=== PATIENT | male | born 1940 | race Hispanic/Latino ===

== ENCOUNTER 2019-08-21 23:23 | Emergency (ER) | payer MEDICARE, OTHER ==
[~2019-08-21 23:23] MED LIST: ACET-2743 PO; AMOX500C2 PO; ASPI-1012 PO; ATOR10 PO; CALC1TAB3 PO; CILO100T PO; FISH1CAP50 PO; INSLAN SQ; INSU100C6 SQ; LISI40TA4 PO; METF-444 PO; METO100T7 PO; TAMS-1 PO; TRAZ-185 PO
[2019-08-21 23:59] LABS: BASOPHILS % (AUTO) 0.4 % (0.0-5.0); EOSINOPHILS % (AUTO) 10.2 % (0.0-8.0); HEMATOCRIT 32.2 % (42-54); LYMPHOCYTES % (AUTO) 14.2 % (21.0-51.0); MEAN CORPUSCULAR HEMOGLOBIN 34.6 pg (27.0-33.0); MEAN CORPUSCULAR HGB CONC 34.5 g/dL (32.0-36.0); MEAN CORPUSCULAR VOLUME 100.4 fL (79-99); MONOCYTES % (AUTO) 6.4 % (3.0-13.0); NEUTROPHILS % (AUTO) 68.8 % (40.0-77.0); PLATELET COUNT (AUTO) 196 K/uL (130-400); RED BLOOD CELL COUNT(AUTO) 3.21 MIL/uL (4.50-6.20); RED CELL DISTRIBUTION WIDTH 14.1 % (11.0-15.5); WHITE BLOOD COUNT (AUTO) 7.1 K/uL (4.8-10.8)
[2019-08-22 00:09] LABS: CREATININE 1.4 mg/dL (0.5-1.5); POTASSIUM 4.1 mmol/L (3.5-5.1)
[2019-08-22 00:14] LABS: BILIRUBIN,DIRECT 0.1 mg/dL (0.0-0.3); BILIRUBIN,TOTAL 0.6 mg/dL (0.2-1.0)
[2019-08-22 00:15] LABS: ALBUMIN 3.9 g/dL (3.5-5.0); TOTAL PROTEIN, SERUM 7.5 g/dL (6.0-8.3)
[2019-08-22 00:19] LABS: B-TYPE NATRIURETIC PEPTIDE 140 pg/mL (0-100)
== END 2019-08-22 03:11 | disposition home or self-care (01) ==
LOC: EDH 23:23
DX: R53.1 Weakness (principal); R00.1 Bradycardia, unspecified; I10 Essential (primary) hypertension; E78.00 Pure hypercholesterolemia, unspecified; E11.9 Type 2 diabetes mellitus without complications; Z95.1 Presence of aortocoronary bypass graft; Z87.891 Personal history of nicotine dependence
CPT/HCPCS: 36415; 71045; 80048; 80076; 82550; 83880; 84484; 85025; 93005

== ENCOUNTER 2021-01-15 21:19 | Inpatient (IN) | payer MEDICARE, OTHER ==
[~2021-01-15] VITALS: Ht 170.2 cm; Wt 103.1 kg
[~2021-01-15 21:19] MED LIST changes: -LISI40TA4 PO; +LISI40TA9 PO
[2021-01-16] MEDS ORDERED: KETOROLAC 15MG/ML VIAL (15MG/ML) ONE (00:08)
[2021-01-16] MEDS ORDERED: ORPHENADRINE CITRATE 30 MG/ML ML ONE (00:08)
[2021-01-16] MEDS ORDERED: LIDOCAINE 5% TOPICAL PATCH TP ONE (00:08)
[2021-01-16 01:15] LABS: BASOPHILS % (AUTO) 0.1 % (0.0-5.0); HEMATOCRIT 26.8 % (42-54); MEAN CORPUSCULAR HEMOGLOBIN 32.5 pg (27.0-33.0); MEAN CORPUSCULAR HGB CONC 35.4 g/dL (32.0-36.0); MEAN CORPUSCULAR VOLUME 91.8 fL (79-99); MONOCYTES % (AUTO) 6.5 % (3.0-13.0); NUCLEATED RED BLOOD CELLS 0.2 % (0.0-0.19); PLATELET COUNT (AUTO) 119 K/uL (130-400); RED BLOOD CELL COUNT(AUTO) 2.92 MIL/uL (4.50-6.20); RED CELL DISTRIBUTION WIDTH 12.7 % (11.0-15.5); WHITE BLOOD COUNT (AUTO) 11.4 K/uL (4.8-10.8)
[2021-01-16 01:28] LABS: INR 1.14 (0.85-1.15); PROTHROMBIN TIME 12.3 SEC (9.6-11.6)
[2021-01-16 01:30] LABS: ALBUMIN 2.4 g/dL (3.5-5.0); BILIRUBIN,TOTAL 0.6 mg/dL (0.2-1.0); CREATININE 3.3 mg/dL (0.5-1.5); PARTIAL THROMBOPLASTIN TIME 27.6 SEC (26.3-35.5); POTASSIUM 4.2 mmol/L (3.5-5.1); TOTAL PROTEIN, SERUM 5.7 g/dL (6.0-8.3)
[2021-01-16 01:35] LABS: B-TYPE NATRIURETIC PEPTIDE 2180 pg/mL (0-100)
[2021-01-16] MEDS ORDERED: ASPIRIN 325 MG TABLET ONE (02:15)
[2021-01-16] MEDS ORDERED: FUROSEMIDE 40MG VIAL ONE (02:15)
[2021-01-16 02:33] LABS: BILIRUBIN,URINE Negative (NEGATIVE); COLOR,URINE Yellow (YELLOW); GLUCOSE, URINE (UA) Negative (NEGATIVE); KETONES,URINE Negative (NEGATIVE); LEUKOCYTE ESTERASE ,URINE Negative (NEGATIVE); NITRATE,URINE Negative (NEGATIVE); OCCULT BLOOD,URINE Negative (NEGATIVE); PROTEIN,URINE POS 1+ mg/dL (NEGATIVE)
[2021-01-16 02:38] LABS: APPEARANCE,URINE CLEAR (CLEAR)
[2021-01-16 03:51] VITALS: BP 135/57
[2021-01-16] MEDS ORDERED: ACETAMINOPHEN 325 MG TAB PO PRN ×2 (04:30)
[2021-01-16] MEDS ORDERED: DEXTROSE 50%-WATER 50 ML DISP.SYRIN IV PRN ×2 (04:30→10:15)
[2021-01-16] MEDS ORDERED: 0.9%NACL 1000ML 1,000 ML IV SCH (04:30)
[2021-01-16] MEDS ORDERED: GLUCAGON 1MG KIT 1 MG ML IM PRN ×2 (04:30→10:15)
[2021-01-16] MEDS ORDERED: VITA1TAB39 PO (04:56)
[2021-01-16] MEDS ORDERED: CLOP75TA32 PO (04:56)
[2021-01-16] MEDS ORDERED: FISH1CAP20 PO (04:56)
[2021-01-16] MEDS ORDERED: LEVO25TA54 PO (04:56)
[2021-01-16] MEDS ORDERED: ISOS60TA77 PO (04:56)
[2021-01-16] MEDS ORDERED: INSU100I3 SQ (04:56)
[2021-01-16] MEDS ORDERED: TRAZ-187 PO (04:56)
[2021-01-16] MEDS ORDERED: BUSP10TA3 PO (04:56)
[2021-01-16] MEDS ORDERED: CLON0.2T PO (04:56)
[2021-01-16] MEDS ORDERED: SPIR25TA6 PO (04:56)
[2021-01-16] MEDS ORDERED: METO-409 PO (04:56)
[2021-01-16] MEDS ORDERED: ENZA40CA PO (04:56)
[2021-01-16] MEDS ORDERED: INSU200I4 SQ (04:56)
[2021-01-16] MEDS ORDERED: PREG75CA75 PO (04:56)
[2021-01-16] MEDS ORDERED: AMLO-258 PO (04:56)
[2021-01-16] MEDS ORDERED: OLME40TA18 PO (04:56)
[2021-01-16] MEDS ORDERED: ATOR20TA65 PO (04:56)
[2021-01-16] MEDS ORDERED: ROPI1TAB13 PO (04:56)
[2021-01-16] MEDS ORDERED: CILO50TA PO (04:56)
[2021-01-16] MEDS ORDERED: UBID100C10 PO (04:56)
[2021-01-16] MEDS ORDERED: TAMS-1 PO (04:56)
[2021-01-16] MEDS ORDERED: AEC81 PO (04:57)
[2021-01-16] MEDS: INSULIN HUMULIN R 100 UNIT/ML 3ML SQ SCH ×4 (06:06→20:42)
[2021-01-16 07:00] VITALS: BP 156/56
[2021-01-16 08:24] LABS: TROPONIN I 10.07 ng/mL (0.00-0.06)
[2021-01-16] MEDS ORDERED: ASPIRIN 325MG EC TAB PO SCH (09:00)
[2021-01-16] MEDS ORDERED: CLOPIDOGREL 75MG TAB PO SCH (09:00)
[2021-01-16] MEDS ORDERED: ACETAMINOPHEN WITH CODEINE 1 TAB TAB PO PRN (10:15)
[2021-01-16] MEDS ORDERED: MORPHINE 2 MG SYG IM PRN (10:15)
[2021-01-16] MEDS ORDERED: MORPHINE 4 MG SYG IM PRN (10:15)
[2021-01-16 11:00] VITALS: BP 110/56
[2021-01-16] MEDS ORDERED: ASPIRIN 81MG CHEW TAB ONE (11:11)
[2021-01-16] MEDS ORDERED: METOPROLOL SUCCINATE 50 MG TAB.SR.24H PO ONE (11:11)
[2021-01-16] MEDS ORDERED: NON-FORMULARY MEDICATION 1 EACH (Metoprolol Succinate 1 TAB) PO SCH (11:15)
[2021-01-16] MEDS ORDERED: ASPIRIN 81 MG EC TAB PO ONE (11:15)
[2021-01-16] MEDS: 0.9%NACL 1000ML 1,000 ML IV SCH ×2 (11:18→20:47)
[2021-01-16] MEDS ORDERED: METOPROLOL SUCCINATE 50 MG TAB.SR.24H PO SCH (11:30)
[2021-01-16] MEDS ORDERED: ASPIRIN 81 MG EC TAB PO SCH (11:30)
[2021-01-16 11:37] LABS: BASOPHILS % (AUTO) 0.2 % (0.0-5.0); EOSINOPHILS % (AUTO) 0.8 % (0.0-8.0); HEMATOCRIT 29.8 % (42-54); LYMPHOCYTES % (AUTO) 2.3 % (21.0-51.0); MEAN CORPUSCULAR HEMOGLOBIN 33.2 pg (27.0-33.0); MEAN CORPUSCULAR HGB CONC 35.9 g/dL (32.0-36.0); MEAN CORPUSCULAR VOLUME 92.5 fL (79-99); MONOCYTES % (AUTO) 7.3 % (3.0-13.0); NEUTROPHILS % (AUTO) 88.7 % (40.0-77.0); NUCLEATED RED BLOOD CELLS 0.2 % (0.0-0.19); PLATELET COUNT (AUTO) 126 K/uL (130-400); RED BLOOD CELL COUNT(AUTO) 3.22 MIL/uL (4.50-6.20); WHITE BLOOD COUNT (AUTO) 12.7 K/uL (4.8-10.8)
[2021-01-16] MEDS ORDERED: METOPROLOL TARTRATE 50 MG TAB PO SCH (12:00)
[2021-01-16] MEDS: METOPROLOL TARTRATE 50 MG TAB PO SCH ×2 (12:10→20:47)
[2021-01-16] MEDS ORDERED: MORPHINE 2 MG SYG IV PRN (13:15)
[2021-01-16] MEDS ORDERED: MORPHINE 4 MG SYG IV PRN (14:15)
[2021-01-16] MEDS ORDERED: CEFTRIAXONE 2GM VIAL IVP SCH (14:45)
[2021-01-16 15:00] VITALS: BP 149/53
[2021-01-16] MEDS ORDERED: 0.9%NACL 50ML 50 ML IV ONE (15:14)
[2021-01-16 19:19] LABS: TROPONIN I 17.6 ng/mL (0.00-0.06)
[2021-01-16] MEDS ORDERED: ENOXAPARIN SODIUM 1 MG/KG SQ SCH (20:00)
[2021-01-16 20:28] VITALS: BP 164/76
[2021-01-16] MEDS: ENOXAPARIN SODIUM 100 MG/1 ML SQ SCH (20:47)
[2021-01-16 23:49] VITALS: BP 157/65
[2021-01-17 03:40] VITALS: BP 154/77
[2021-01-17 05:30] LABS: HEMATOCRIT 29.9 % (42-54); MEAN CORPUSCULAR HEMOGLOBIN 32.6 pg (27.0-33.0); MEAN CORPUSCULAR HGB CONC 34.8 g/dL (32.0-36.0); MEAN CORPUSCULAR VOLUME 93.7 fL (79-99); RED BLOOD CELL COUNT(AUTO) 3.19 MIL/uL (4.50-6.20); WHITE BLOOD COUNT (AUTO) 14.6 K/uL (4.8-10.8)
[2021-01-17] MEDS: LEVOTHYROXINE 25 MCG TABLET PO SCH (05:40)
[2021-01-17] MEDS: 0.9%NACL 1000ML 1,000 ML IV SCH (05:40)
[2021-01-17] MEDS: INSULIN HUMULIN R 100 UNIT/ML 3ML SQ SCH ×2 (05:41→21:25)
[2021-01-17 05:58] LABS: CREATININE 2.1 mg/dL (0.5-1.5); POTASSIUM 4.3 mmol/L (3.5-5.1)
[2021-01-17 07:46] VITALS: BP 150/65
[2021-01-17] MEDS ORDERED: AMLO-258 PO (08:26)
[2021-01-17] MEDS ORDERED: ROPI1TAB13 PO (08:26)
[2021-01-17] MEDS ORDERED: TRAZ-187 PO (08:26)
[2021-01-17] MEDS ORDERED: CILO50TA PO (08:26)
[2021-01-17 08:58] LABS: TROPONIN I 13.9 ng/mL (0.00-0.06)
[2021-01-17] MEDS ORDERED: PREGABALIN 75 MG CAPSULE PO SCH (09:00)
[2021-01-17] MEDS ORDERED: CEFTRIAXONE 1G VIAL IVP SCH ×2 (09:00→14:45)
[2021-01-17] MEDS ORDERED: ENOXAPARIN SODIUM 100 MG/1 ML SQ SCH (09:00)
[2021-01-17] MEDS ORDERED: ENOXAPARIN SODIUM 30 MG/0.3 ML SQ SCH (09:00)
[2021-01-17] MEDS ORDERED: ATORVASTATIN 20 MG TABLET PO SCH (09:00)
[2021-01-17] MEDS ORDERED: ROPINIROLE HCL 1 MG TABLET PO SCH (09:00)
[2021-01-17] MEDS ORDERED: VANCOMYCIN 1G VIAL IV SCH (09:00)
[2021-01-17] MEDS ORDERED: CILOSTAZOL 100 MG TAB PO SCH (09:00)
[2021-01-17] MEDS ORDERED: VANCOMYCIN PROTOCOL PER PHARMACY IV SCH (09:15)
[2021-01-17] MEDS: PANTOPRAZOLE 40 MG TAB DR PO SCH (10:06)
[2021-01-17] MEDS: ASPIRIN 81MG CHEW TAB PO SCH (10:06)
[2021-01-17] MEDS: FUROSEMIDE 40 MG TABLET PO SCH (10:07)
[2021-01-17] MEDS: TAMSULOSIN HCL 0.4 MG CAP.ER.24H PO SCH (10:07)
[2021-01-17] MEDS: CLOPIDOGREL 75MG TAB PO SCH (10:07)
[2021-01-17] MEDS: ACETYLCYSTEINE 20% 200MG/ML 4ML VIAL PO SCH ×2 (10:08→21:30)
[2021-01-17] MEDS: XTANDI 160 MG PO SCH (10:08)
[2021-01-17] MEDS: METOPROLOL TARTRATE 50 MG TAB PO SCH ×2 (10:09→20:44)
[2021-01-17] MEDS: VANCOMYCIN 1G/250ML KIT 250 ML IV SCH (10:09)
[2021-01-17 12:01] VITALS: BP 128/58
[2021-01-17 16:00] VITALS: BP 146/68
[2021-01-17 19:47] VITALS: BP 164/62
[2021-01-17] MEDS: ENOXAPARIN SODIUM 100 MG/1 ML SQ SCH (20:38)
[2021-01-17] MEDS ORDERED: ISOSORBIDE MONO 30MG SR TAB PO SCH (21:00)
[2021-01-17 23:42] VITALS: BP 146/71
[2021-01-18] VITALS (9 sets, daily range): BP systolic 135–164; BP diastolic 51–74
[2021-01-18] MEDS: 0.9%NACL 1000ML 1,000 ML IV SCH ×2 (02:26→13:22)
[2021-01-18 05:00] LABS: HEMATOCRIT 30.3 % (42-54); MEAN CORPUSCULAR HEMOGLOBIN 31.9 pg (27.0-33.0); MEAN CORPUSCULAR HGB CONC 34.3 g/dL (32.0-36.0); MEAN CORPUSCULAR VOLUME 92.9 fL (79-99); NUCLEATED RED BLOOD CELLS 0.1 % (0.0-0.19); PLATELET COUNT (AUTO) 135 K/uL (130-400); RED BLOOD CELL COUNT(AUTO) 3.26 MIL/uL (4.50-6.20); RED CELL DISTRIBUTION WIDTH 13.1 % (11.0-15.5); WHITE BLOOD COUNT (AUTO) 14.4 K/uL (4.8-10.8)
[2021-01-18 05:26] LABS: ALBUMIN 2.1 g/dL (3.5-5.0); BILIRUBIN,TOTAL 0.9 mg/dL (0.2-1.0); CREATININE 1.7 mg/dL (0.5-1.5); POTASSIUM 4.2 mmol/L (3.5-5.1); TOTAL PROTEIN, SERUM 5.7 g/dL (6.0-8.3)
[2021-01-18 06:19] LABS: BAND NEUTROPHILS % (MANUAL) 7 % (0-2); LYMPHOCYTES % (MANUAL) 6 % (22-44); MAN.DIFF COMMENT-IMPRESSION MANUAL DIFFERENTIAL; MONOCYTES % (MANUAL) 5 % (2-9); PLATELET MORPHOLOGY COMMENT ADEQUATE; SEGMENTED NEUTROPHILS % 82 % (40-70)
[2021-01-18] MEDS: FUROSEMIDE 40 MG TABLET PO SCH (06:21)
[2021-01-18] MEDS: LEVOTHYROXINE 25 MCG TABLET PO SCH (06:21)
[2021-01-18] MEDS: INSULIN HUMULIN R 100 UNIT/ML 3ML SQ SCH ×4 (07:01→20:11)
[2021-01-18] MEDS ORDERED: MAG/ALUM/SIMETH 30 ML UDCUP PO PRN (08:45)
[2021-01-18] MEDS: ISOSORBIDE MONO 30MG SR TAB PO SCH ×3 (09:00→20:15)
[2021-01-18] MEDS: PREGABALIN 75 MG CAPSULE PO SCH ×3 (09:00→20:14)
[2021-01-18] MEDS: INSULIN GLARGINE 100 UNITS/ML 10 ML VIAL SQ SCH (09:00)
[2021-01-18] MEDS: VANCOMYCIN 1G/250ML KIT 250 ML IV SCH (10:09)
[2021-01-18] MEDS: ACETYLCYSTEINE 20% 200MG/ML 4ML VIAL PO SCH ×3 (10:10→20:14)
[2021-01-18] MEDS: CLOPIDOGREL 75MG TAB PO SCH (10:10)
[2021-01-18] MEDS: TAMSULOSIN HCL 0.4 MG CAP.ER.24H PO SCH (10:11)
[2021-01-18] MEDS: ASPIRIN 81MG CHEW TAB PO SCH (10:11)
[2021-01-18] MEDS: PANTOPRAZOLE 40 MG TAB DR PO SCH (10:11)
[2021-01-18] MEDS: METOPROLOL TARTRATE 50 MG TAB PO SCH ×2 (10:11→20:14)
[2021-01-18] MEDS: XTANDI 160 MG PO SCH (10:12)
[2021-01-18] MEDS: ROPINIROLE HCL 1 MG TABLET PO SCH ×2 (10:34→20:13)
[2021-01-18] MEDS ORDERED: MIDAZOLAM HCL 1 MG/ML 2ML VIAL IVP SCH (11:45)
[2021-01-18] MEDS ORDERED: LIDOCAINE HCL 2% VISCOUS 15 ML UDCUP PO SCH (11:45)
[2021-01-18] MEDS ORDERED: MEPERIDINE HCL/PF 25 MG/0.5 ML AMPUL IVP SCH (11:45)
[2021-01-18] MEDS ORDERED: LIDOCAINE HCL 2% VISCOUS 15 ML UDCUP ONE (12:28)
[2021-01-18] MEDS ORDERED: MEPERIDINE-PF 50 MG/ML SYG ONE ×2 (12:29→12:31)
[2021-01-18] MEDS ORDERED: FLUMAZENIL 0.1MG/1ML 5ML VIAL IV ONE (13:09)
[2021-01-18] MEDS ORDERED: NALOXONE HCL 0.4 MG/1 ML ML ONE (13:09)
[2021-01-18] MEDS: TRAZODONE HCL 100 MG TABLET PO SCH (20:14)
[2021-01-18] MEDS: ENOXAPARIN SODIUM 100 MG/1 ML SQ SCH (20:15)
[2021-01-19] VITALS (13 sets, daily range): BP systolic 109–178; BP diastolic 61–88
[2021-01-19 05:11] LABS: BASOPHILS % (AUTO) 0.2 % (0.0-5.0); LYMPHOCYTES % (AUTO) 6.6 % (21.0-51.0); MEAN CORPUSCULAR HEMOGLOBIN 32.9 pg (27.0-33.0); MEAN CORPUSCULAR HGB CONC 35.5 g/dL (32.0-36.0); MEAN CORPUSCULAR VOLUME 92.7 fL (79-99); MONOCYTES % (AUTO) 7.7 % (3.0-13.0); NEUTROPHILS % (AUTO) 83.2 % (40.0-77.0); PLATELET COUNT (AUTO) 155 K/uL (130-400); RED BLOOD CELL COUNT(AUTO) 3.13 MIL/uL (4.50-6.20); RED CELL DISTRIBUTION WIDTH 13.2 % (11.0-15.5); WHITE BLOOD COUNT (AUTO) 11.8 K/uL (4.8-10.8)
[2021-01-19 05:34] LABS: CREATININE 1.5 mg/dL (0.5-1.5); POTASSIUM 4.1 mmol/L (3.5-5.1); TOTAL PROTEIN, SERUM 5.4 g/dL (6.0-8.3)
[2021-01-19] MEDS: INSULIN HUMULIN R 100 UNIT/ML 3ML SQ SCH ×4 (05:39→21:02)
[2021-01-19] MEDS: FUROSEMIDE 40 MG TABLET PO SCH (06:30)
[2021-01-19] MEDS: LEVOTHYROXINE 25 MCG TABLET PO SCH (06:30)
[2021-01-19 08:10] LABS: INR 1.18 (0.85-1.15); PROTHROMBIN TIME 12.7 SEC (9.6-11.6)
[2021-01-19 08:11] LABS: PARTIAL THROMBOPLASTIN TIME 25.6 SEC (26.3-35.5)
[2021-01-19] MEDS: XTANDI 160 MG PO SCH (09:00)
[2021-01-19] MEDS: TAMSULOSIN HCL 0.4 MG CAP.ER.24H PO SCH (09:00)
[2021-01-19] MEDS: PREGABALIN 75 MG CAPSULE PO SCH ×2 (09:00→21:00)
[2021-01-19] MEDS: ISOSORBIDE MONO 30MG SR TAB PO SCH ×2 (09:44→21:00)
[2021-01-19] MEDS: METOPROLOL TARTRATE 50 MG TAB PO SCH ×2 (09:44→21:00)
[2021-01-19] MEDS: ASPIRIN 81MG CHEW TAB PO SCH (09:45)
[2021-01-19] MEDS: PANTOPRAZOLE 40 MG TAB DR PO SCH (09:46)
[2021-01-19] MEDS: ACETYLCYSTEINE 20% 200MG/ML 4ML VIAL PO SCH (09:46)
[2021-01-19] MEDS: CLOPIDOGREL 75MG TAB PO SCH (09:46)
[2021-01-19] MEDS: VANCOMYCIN 1G/250ML KIT 250 ML IV SCH (09:47)
[2021-01-19] MEDS: INSULIN GLARGINE 100 UNITS/ML 10 ML VIAL SQ SCH ×2 (12:00→21:02)
[2021-01-19] MEDS ORDERED: HEPARIN 10,000 UNIT/10ML (1,000 UNIT/ML) VIAL ONE (12:23)
[2021-01-19] MEDS ORDERED: IOHEXOL-350 50ML VIAL IV ONE (12:24)
[2021-01-19] MEDS ORDERED: NITROGLYCERIN 2 MG VIAL IV ONE (12:24)
[2021-01-19] MEDS ORDERED: IOHEXOL-350 75 ML VIAL IV ONE ×2 (12:24→14:11)
[2021-01-19] MEDS ORDERED: LIDOCAINE HCL 400MG/20ML VIAL ONE (12:24)
[2021-01-19] MEDS ORDERED: AMPICILLIN 2GM+NS 100ML 100 ML IV SCH (12:45)
[2021-01-19] MEDS ORDERED: CEFTRIAXONE 1G VIAL IVP SCH (12:45)
[2021-01-19] MEDS ORDERED: MIDAZOLAM HCL 1 MG/ML 2ML VIAL ONE (13:10)
[2021-01-19] MEDS ORDERED: FENTANYL CITRATE PF 50 MCG/1 ML 2ML VIAL ONE (13:10)
[2021-01-19] MEDS ORDERED: HEPARIN 1,000 UNIT VIAL ONE (13:46)
[2021-01-19] MEDS ORDERED: BIVALIRUDIN 250 MG/VIAL IV ONE (14:04)
[2021-01-19] MEDS ORDERED: TICAGRELOR 90 MG TABLET ONE (15:16)
[2021-01-19] MEDS ORDERED: ASPIRIN 325MG EC TAB PO ONE (15:16)
[2021-01-19] MEDS ORDERED: ONDANSETRON 4MG INJ IVP PRN (15:45)
[2021-01-19] MEDS ORDERED: TEMAZEPAM 30 MG CAP PO PRN (15:45)
[2021-01-19] MEDS ORDERED: ACETAMINOPHEN WITH CODEINE 1 TAB TAB PO PRN (15:45)
[2021-01-19] MEDS ORDERED: NITROGLYCERIN 50MG/D5W 250ML 1 BOT IV PRN (15:45)
[2021-01-19] MEDS: AMPICILLIN 2GM+NS 100ML 100 ML IV SCH (17:48)
[2021-01-19] MEDS ORDERED: CEFTRIAXONE 1G VIAL ONE (19:47)
[2021-01-19] MEDS: ROPINIROLE HCL 1 MG TABLET PO SCH (20:00)
[2021-01-19] MEDS: TRAZODONE HCL 100 MG TABLET PO SCH (21:00)
[2021-01-19] MEDS: CEFTRIAXONE 1G VIAL IVP SCH (21:50)
[2021-01-19] MEDS: TICAGRELOR 90 MG TABLET PO SCH (23:45)
[2021-01-20] MEDS: AMPICILLIN 2GM+NS 100ML 100 ML IV SCH ×5 (01:28→23:39)
[2021-01-20 03:25] VITALS: BP 160/61
[2021-01-20 05:23] LABS: HEMATOCRIT 29.6 % (42-54); MEAN CORPUSCULAR HEMOGLOBIN 32.4 pg (27.0-33.0); MEAN CORPUSCULAR HGB CONC 34.8 g/dL (32.0-36.0); MEAN CORPUSCULAR VOLUME 93.1 fL (79-99); RED BLOOD CELL COUNT(AUTO) 3.18 MIL/uL (4.50-6.20); RED CELL DISTRIBUTION WIDTH 13.5 % (11.0-15.5)
[2021-01-20 05:40] LABS: CREATININE 1.5 mg/dL (0.5-1.5); POTASSIUM 3.5 mmol/L (3.5-5.1)
[2021-01-20] MEDS: INSULIN HUMULIN R 100 UNIT/ML 3ML SQ SCH ×4 (06:27→21:00)
[2021-01-20] MEDS: LEVOTHYROXINE 25 MCG TABLET PO SCH ×2 (06:27→08:24)
[2021-01-20] MEDS: FUROSEMIDE 40 MG TABLET PO SCH (06:27)
[2021-01-20] MEDS ORDERED: METOPROLOL TARTRATE 1 MG/ML 5ML VIAL IV PRN (07:30)
[2021-01-20] MEDS: NITROGLYCERIN 1GM OINT 1 INCH/1GM TD SCH ×3 (07:30→19:30)
[2021-01-20] MEDS ORDERED: PHARMACY COMMUNICATION MISC SCH (07:30)
[2021-01-20] MEDS ORDERED: HYDRALAZINE 20MG/ML VIAL IV PRN (07:30)
[2021-01-20 08:06] VITALS: BP 143/64
[2021-01-20] MEDS: TICAGRELOR 90 MG TABLET PO SCH ×3 (08:07→21:35)
[2021-01-20] MEDS: ASPIRIN 81MG CHEW TAB PO SCH ×2 (08:08→09:00)
[2021-01-20] MEDS: ISOSORBIDE MONO 30MG SR TAB PO SCH ×2 (08:09→21:35)
[2021-01-20] MEDS: METOPROLOL TARTRATE 50 MG TAB PO SCH ×2 (08:09→21:35)
[2021-01-20] MEDS: TAMSULOSIN HCL 0.4 MG CAP.ER.24H PO SCH (08:09)
[2021-01-20] MEDS: PREGABALIN 75 MG CAPSULE PO SCH (08:09)
[2021-01-20] MEDS: PANTOPRAZOLE 40 MG TAB DR PO SCH (08:13)
[2021-01-20] MEDS: INSULIN GLARGINE 100 UNITS/ML 10 ML VIAL SQ SCH ×2 (08:17→21:47)
[2021-01-20] MEDS: CEFTRIAXONE 1G VIAL IVP SCH ×2 (08:23→21:36)
[2021-01-20] MEDS ORDERED: CLOPIDOGREL 75MG TAB PO SCH (09:00)
[2021-01-20] MEDS: BACITRACIN 28.4 GM OINT TP SCH ×2 (11:30→21:48)
[2021-01-20 11:54] VITALS: BP 122/58
[2021-01-20] MEDS: XTANDI 160 MG PO SCH (15:22)
[2021-01-20 16:10] VITALS: BP 132/63
[2021-01-20 19:15] VITALS: BP 102/36
[2021-01-20 23:05] VITALS: BP 143/66
[2021-01-21] MEDS: NITROGLYCERIN 1GM OINT 1 INCH/1GM TD SCH ×4 (01:30→17:07)
[2021-01-21 03:34] VITALS: BP 149/59
[2021-01-21] MEDS: AMPICILLIN 2GM+NS 100ML 100 ML IV SCH ×3 (05:13→17:06)
[2021-01-21 05:19] LABS: BASOPHILS % (AUTO) 0.1 % (0.0-5.0); EOSINOPHILS % (AUTO) 0.3 % (0.0-8.0); HEMATOCRIT 32.4 % (42-54); LYMPHOCYTES % (AUTO) 3.8 % (21.0-51.0); MEAN CORPUSCULAR HEMOGLOBIN 32.6 pg (27.0-33.0); MEAN CORPUSCULAR HGB CONC 34.6 g/dL (32.0-36.0); MEAN CORPUSCULAR VOLUME 94.2 fL (79-99); MONOCYTES % (AUTO) 4.7 % (3.0-13.0); NEUTROPHILS % (AUTO) 89.2 % (40.0-77.0); PLATELET COUNT (AUTO) 254 K/uL (130-400); RED BLOOD CELL COUNT(AUTO) 3.44 MIL/uL (4.50-6.20); RED CELL DISTRIBUTION WIDTH 13.7 % (11.0-15.5); WHITE BLOOD COUNT (AUTO) 20.3 K/uL (4.8-10.8)
[2021-01-21 05:41] LABS: CREATININE 1.5 mg/dL (0.5-1.5); POTASSIUM 3.5 mmol/L (3.5-5.1)
[2021-01-21] MEDS: INSULIN HUMULIN R 100 UNIT/ML 3ML SQ SCH ×4 (06:14→20:56)
[2021-01-21] MEDS: FUROSEMIDE 40 MG TABLET PO SCH (06:36)
[2021-01-21 08:59] VITALS: BP 156/71
[2021-01-21] MEDS: ASPIRIN 81MG CHEW TAB PO SCH ×2 (09:00→09:10)
[2021-01-21] MEDS: ISOSORBIDE MONO 30MG SR TAB PO SCH (09:10)
[2021-01-21] MEDS: TAMSULOSIN HCL 0.4 MG CAP.ER.24H PO SCH (09:10)
[2021-01-21] MEDS: METOPROLOL TARTRATE 50 MG TAB PO SCH ×2 (09:10→20:48)
[2021-01-21] MEDS: PANTOPRAZOLE 40 MG TAB DR PO SCH (09:11)
[2021-01-21] MEDS: CEFTRIAXONE 1G VIAL IVP SCH ×2 (09:11→20:48)
[2021-01-21] MEDS: TICAGRELOR 90 MG TABLET PO SCH ×3 (09:11→20:48)
[2021-01-21] MEDS: XTANDI 160 MG PO SCH (09:16)
[2021-01-21] MEDS: INSULIN GLARGINE 100 UNITS/ML 10 ML VIAL SQ SCH (09:18)
[2021-01-21] MEDS: BACITRACIN 28.4 GM OINT TP SCH ×2 (10:12→20:48)
[2021-01-21] MEDS ORDERED: KCL 20 MEQ ERTAB PO SCH (10:15)
[2021-01-21 12:49] VITALS: BP 144/61
[2021-01-21 16:29] VITALS: BP 136/65
[2021-01-21 20:20] VITALS: BP 138/57
[2021-01-21 23:43] VITALS: BP 107/62
[2021-01-22] MEDS: AMPICILLIN 2GM+NS 100ML 100 ML IV SCH ×5 (00:02→23:21)
[2021-01-22] MEDS: NITROGLYCERIN 1GM OINT 1 INCH/1GM TD SCH ×3 (00:02→12:35)
[2021-01-22 04:39] VITALS: BP 111/54
[2021-01-22 05:46] LABS: BASOPHILS % (AUTO) 0.1 % (0.0-5.0); EOSINOPHILS % (AUTO) 0.9 % (0.0-8.0); HEMATOCRIT 31.1 % (42-54); LYMPHOCYTES % (AUTO) 4.1 % (21.0-51.0); MEAN CORPUSCULAR HEMOGLOBIN 32.4 pg (27.0-33.0); MEAN CORPUSCULAR HGB CONC 34.1 g/dL (32.0-36.0); MEAN CORPUSCULAR VOLUME 95.1 fL (79-99); MONOCYTES % (AUTO) 4.9 % (3.0-13.0); NEUTROPHILS % (AUTO) 88.7 % (40.0-77.0); NUCLEATED RED BLOOD CELLS 0.1 % (0.0-0.19); PLATELET COUNT (AUTO) 272 K/uL (130-400); RED BLOOD CELL COUNT(AUTO) 3.27 MIL/uL (4.50-6.20); RED CELL DISTRIBUTION WIDTH 13.7 % (11.0-15.5); WHITE BLOOD COUNT (AUTO) 19.5 K/uL (4.8-10.8)
[2021-01-22 05:56] LABS: CREATININE 1.2 mg/dL (0.5-1.5); POTASSIUM 3.1 mmol/L (3.5-5.1)
[2021-01-22] MEDS ORDERED: KCL 20 MEQ ERTAB PO ONE (06:22)
[2021-01-22] MEDS: LEVOTHYROXINE 25 MCG TABLET PO SCH (06:25)
[2021-01-22] MEDS: FUROSEMIDE 40 MG TABLET PO SCH (06:27)
[2021-01-22] MEDS: INSULIN HUMULIN R 100 UNIT/ML 3ML SQ SCH ×4 (06:27→21:00)
[2021-01-22] MEDS ORDERED: POTASSIUM CHLORIDE 20MEQ/100ML 100 ML IV PRN (06:30)
[2021-01-22] MEDS ORDERED: LIDOCAINE HCL-MPF 1% 2ML VIAL IV PRN (06:30)
[2021-01-22] MEDS ORDERED: POTASSIUM CHLORIDE 10% ELIXIR 20 MEQ/15 ML UDCUP PO PRN (06:30)
[2021-01-22 08:45] VITALS: BP 149/62
[2021-01-22] MEDS: INSULIN GLARGINE 100 UNITS/ML 10 ML VIAL SQ SCH (09:00)
[2021-01-22] MEDS: ASPIRIN 81MG CHEW TAB PO SCH ×2 (09:00→09:33)
[2021-01-22] MEDS: METOPROLOL TARTRATE 50 MG TAB PO SCH ×2 (09:33→21:02)
[2021-01-22] MEDS: LOSARTAN 50 MG TABLET PO SCH (09:33)
[2021-01-22] MEDS: PANTOPRAZOLE 40 MG TAB DR PO SCH (09:33)
[2021-01-22] MEDS: TAMSULOSIN HCL 0.4 MG CAP.ER.24H PO SCH (09:34)
[2021-01-22] MEDS: TICAGRELOR 90 MG TABLET PO SCH ×3 (09:34→21:04)
[2021-01-22] MEDS: ISOSORBIDE MONO 60MG SR TAB PO SCH (09:34)
[2021-01-22] MEDS: KCL 20 MEQ ERTAB PO SCH (09:35)
[2021-01-22] MEDS: CEFTRIAXONE 1G VIAL IVP SCH ×2 (09:35→21:03)
[2021-01-22] MEDS: XTANDI 160 MG PO SCH (09:40)
[2021-01-22] MEDS: BACITRACIN 28.4 GM OINT TP SCH ×2 (09:41→21:03)
[2021-01-22 12:29] VITALS: BP 130/52
[2021-01-22] MEDS: KCL 20 MEQ ERTAB PO PRN ×2 (12:47→16:06)
[2021-01-22] MEDS ORDERED: FUROSEMIDE 40MG VIAL IV SCH (15:30)
[2021-01-22 16:54] VITALS: BP 116/52
[2021-01-22 19:46] VITALS: BP 153/58
[2021-01-22 23:20] VITALS: BP 135/66
[2021-01-23 04:11] VITALS: BP 139/63
[2021-01-23 05:27] LABS: BASOPHILS % (AUTO) 0.1 % (0.0-5.0); EOSINOPHILS % (AUTO) 0.9 % (0.0-8.0); HEMATOCRIT 30.3 % (42-54); LYMPHOCYTES % (AUTO) 4.5 % (21.0-51.0); MEAN CORPUSCULAR HEMOGLOBIN 32.5 pg (27.0-33.0); MEAN CORPUSCULAR HGB CONC 34.3 g/dL (32.0-36.0); MEAN CORPUSCULAR VOLUME 94.7 fL (79-99); MONOCYTES % (AUTO) 6.4 % (3.0-13.0); PLATELET COUNT (AUTO) 288 K/uL (130-400); RED CELL DISTRIBUTION WIDTH 13.8 % (11.0-15.5); WHITE BLOOD COUNT (AUTO) 14.4 K/uL (4.8-10.8)
[2021-01-23 05:34] LABS: CREATININE 1.2 mg/dL (0.5-1.5); POTASSIUM 3.6 mmol/L (3.5-5.1)
[2021-01-23] MEDS: LEVOTHYROXINE 25 MCG TABLET PO SCH (05:34)
[2021-01-23] MEDS: AMPICILLIN 2GM+NS 100ML 100 ML IV SCH ×4 (05:34→23:28)
[2021-01-23] MEDS: INSULIN HUMULIN R 100 UNIT/ML 3ML SQ SCH ×4 (06:53→21:00)
[2021-01-23] MEDS: ISOSORBIDE MONO 60MG SR TAB PO SCH (08:18)
[2021-01-23] MEDS: CEFTRIAXONE 1G VIAL IVP SCH ×2 (08:18→21:35)
[2021-01-23] MEDS: ASPIRIN 81MG CHEW TAB PO SCH (08:19)
[2021-01-23] MEDS: KCL 20 MEQ ERTAB PO SCH (08:19)
[2021-01-23] MEDS: TAMSULOSIN HCL 0.4 MG CAP.ER.24H PO SCH (08:19)
[2021-01-23] MEDS: METOPROLOL TARTRATE 50 MG TAB PO SCH ×2 (08:19→21:35)
[2021-01-23] MEDS: FUROSEMIDE 40 MG TABLET PO SCH (08:20)
[2021-01-23] MEDS: LOSARTAN 50 MG TABLET PO SCH (08:20)
[2021-01-23] MEDS: PANTOPRAZOLE 40 MG TAB DR PO SCH (08:20)
[2021-01-23] MEDS: TICAGRELOR 90 MG TABLET PO SCH ×3 (08:20→21:35)
[2021-01-23] MEDS: INSULIN GLARGINE 100 UNITS/ML 10 ML VIAL SQ SCH (08:21)
[2021-01-23] MEDS: XTANDI 160 MG PO SCH (08:21)
[2021-01-23] MEDS: BACITRACIN 28.4 GM OINT TP SCH ×2 (08:26→21:35)
[2021-01-23 08:27] VITALS: BP 148/69
[2021-01-23] MEDS ORDERED: METO50 PO (09:18)
[2021-01-23] MEDS ORDERED: INSLAN SQ (09:18)
[2021-01-23] MEDS ORDERED: PANT40TA PO (09:18)
[2021-01-23] MEDS ORDERED: TICA90TA PO (09:18)
[2021-01-23 12:48] VITALS: BP 139/62
[2021-01-23 16:30] VITALS: BP 131/56
[2021-01-23 19:48] VITALS: BP 156/65
[2021-01-24] VITALS (7 sets, daily range): BP systolic 120–158; BP diastolic 52–67
[2021-01-24 04:19] LABS: BASOPHILS % (AUTO) 0.1 % (0.0-5.0); EOSINOPHILS % (AUTO) 0.9 % (0.0-8.0); HEMATOCRIT 32.1 % (42-54); LYMPHOCYTES % (AUTO) 3.2 % (21.0-51.0); MEAN CORPUSCULAR HEMOGLOBIN 31.7 pg (27.0-33.0); MEAN CORPUSCULAR HGB CONC 32.7 g/dL (32.0-36.0); MONOCYTES % (AUTO) 7.8 % (3.0-13.0); NEUTROPHILS % (AUTO) 86.9 % (40.0-77.0); PLATELET COUNT (AUTO) 330 K/uL (130-400); RED BLOOD CELL COUNT(AUTO) 3.31 MIL/uL (4.50-6.20); RED CELL DISTRIBUTION WIDTH 14.4 % (11.0-15.5); WHITE BLOOD COUNT (AUTO) 14.1 K/uL (4.8-10.8)
[2021-01-24 04:25] LABS: CREATININE 1.1 mg/dL (0.5-1.5); POTASSIUM 3.2 mmol/L (3.5-5.1)
[2021-01-24] MEDS: AMPICILLIN 2GM+NS 100ML 100 ML IV SCH ×3 (05:20→17:19)
[2021-01-24] MEDS: LEVOTHYROXINE 25 MCG TABLET PO SCH (06:40)
[2021-01-24] MEDS: INSULIN HUMULIN R 100 UNIT/ML 3ML SQ SCH ×4 (06:40→21:00)
[2021-01-24] MEDS: ACETAMINOPHEN WITH CODEINE 1 TAB TAB PO PRN ×2 (06:49→20:36)
[2021-01-24] MEDS: ISOSORBIDE MONO 60MG SR TAB PO SCH (09:46)
[2021-01-24] MEDS: TAMSULOSIN HCL 0.4 MG CAP.ER.24H PO SCH (09:50)
[2021-01-24] MEDS: FUROSEMIDE 40 MG TABLET PO SCH (09:51)
[2021-01-24] MEDS: CEFTRIAXONE 1G VIAL IVP SCH ×2 (09:51→21:31)
[2021-01-24] MEDS: TICAGRELOR 90 MG TABLET PO SCH ×3 (09:51→21:32)
[2021-01-24] MEDS: ASPIRIN 81MG CHEW TAB PO SCH (09:51)
[2021-01-24] MEDS: BACITRACIN 28.4 GM OINT TP SCH ×2 (09:52→21:31)
[2021-01-24] MEDS: PANTOPRAZOLE 40 MG TAB DR PO SCH (09:52)
[2021-01-24] MEDS: LOSARTAN 100 MG TABLET PO SCH (09:52)
[2021-01-24] MEDS: KCL 20 MEQ ERTAB PO SCH ×2 (10:32→21:31)
[2021-01-24] MEDS: XTANDI 160 MG PO SCH (10:32)
[2021-01-24] MEDS: METOPROLOL TARTRATE 50 MG TAB PO SCH ×2 (10:32→21:31)
[2021-01-24 14:23] LABS: PARTIAL THROMBOPLASTIN TIME 24.7 SEC (26.3-35.5)
[2021-01-24 14:42] LABS: INR 1.12 (0.85-1.15); PROTHROMBIN TIME 11.5 SEC (9.6-11.6)
[2021-01-24] MEDS: KCL 20 MEQ ERTAB PO PRN (18:07)
[2021-01-25] MEDS: AMPICILLIN 2GM+NS 100ML 100 ML IV SCH ×4 (00:09→17:41)
[2021-01-25 03:20] VITALS: BP 137/51
[2021-01-25 04:58] LABS: POTASSIUM 4.3 mmol/L (3.5-5.1)
[2021-01-25] MEDS: LEVOTHYROXINE 25 MCG TABLET PO SCH (05:16)
[2021-01-25] MEDS: INSULIN HUMULIN R 100 UNIT/ML 3ML SQ SCH ×3 (06:01→16:30)
[2021-01-25 07:35] VITALS: BP 141/55
[2021-01-25] MEDS ORDERED: INSULIN GLARGINE 100 UNITS/ML 10 ML VIAL SQ SCH (08:00)
[2021-01-25] MEDS: TICAGRELOR 90 MG TABLET PO SCH (08:51)
[2021-01-25] MEDS: TAMSULOSIN HCL 0.4 MG CAP.ER.24H PO SCH (08:51)
[2021-01-25] MEDS: LOSARTAN 100 MG TABLET PO SCH (08:56)
[2021-01-25] MEDS: PANTOPRAZOLE 40 MG TAB DR PO SCH (08:56)
[2021-01-25] MEDS: METOPROLOL TARTRATE 50 MG TAB PO SCH (09:00)
[2021-01-25] MEDS: ISOSORBIDE MONO 60MG SR TAB PO SCH (09:00)
[2021-01-25] MEDS: ASPIRIN 81MG CHEW TAB PO SCH (09:01)
[2021-01-25] MEDS: KCL 20 MEQ ERTAB PO SCH (09:01)
[2021-01-25] MEDS: XTANDI 160 MG PO SCH (09:01)
[2021-01-25] MEDS: BACITRACIN 28.4 GM OINT TP SCH (09:02)
[2021-01-25] MEDS: CEFTRIAXONE 1G VIAL IVP SCH (09:02)
[2021-01-25] MEDS: FUROSEMIDE 40 MG TABLET PO SCH (09:02)
[2021-01-25 11:14] VITALS: BP 113/47
[2021-01-25] MEDS ORDERED: FURO40TA5 PO (13:45)
[2021-01-25] MEDS ORDERED: [UNRECOGNIZED DRUG - CODE] IV (13:56)
[2021-01-25] MEDS ORDERED: CEFX2I IV (13:56)
[2021-01-25 16:38] VITALS: BP 112/50
== END 2021-01-25 18:00 | DRG 853 ==
LOC: EDH 21:19 → EDHIP 01-16 02:28 → 4CH 01-16 04:31
PROVIDERS: ADMIT Internal Medicine; ATTEND Internal Medicine
PROC: 02HV33Z Insertion of Infusion Device into Superior Vena Cava, Percutaneous Approach (ICD-10-PCS; principal; 2021-01-16)
PROC: 027135Z Dilation of Coronary Artery, Two Arteries with Two Drug-eluting Intraluminal Devices, Percutaneous Approach (ICD-10-PCS; 2021-01-18)
PROC: B24BZZ4 Ultrasonography of Heart with Aorta, Transesophageal (ICD-10-PCS; 2021-01-18)
PROC: 4A023N7 Measurement of Cardiac Sampling and Pressure, Left Heart, Percutaneous Approach (ICD-10-PCS; 2021-01-19)
PROC: B213YZZ Fluoroscopy of Multiple Coronary Artery Bypass Grafts using Other Contrast (ICD-10-PCS; 2021-01-19)
PROC: B211YZZ Fluoroscopy of Multiple Coronary Arteries using Other Contrast (ICD-10-PCS; 2021-01-19)
PROC: B218YZZ Fluoroscopy of Left Internal Mammary Bypass Graft using Other Contrast (ICD-10-PCS; 2021-01-19)
PROC: B41FYZZ Fluoroscopy of Right Lower Extremity Arteries using Other Contrast (ICD-10-PCS; 2021-01-19)
DX: A41.81 Sepsis due to Enterococcus (principal); I21.4 Non-ST elevation (NSTEMI) myocardial infarction; I50.21 Acute systolic (congestive) heart failure; N17.9 Acute kidney failure, unspecified; I13.0 Hypertensive heart and chronic kidney disease with heart failure and stage 1 through stage 4 chronic kidney disease, or unspecified chronic kidney disease; I38 Endocarditis, valve unspecified; D64.9 Anemia, unspecified; I48.91 Unspecified atrial fibrillation; E11.22 Type 2 diabetes mellitus with diabetic chronic kidney disease; E11.42 Type 2 diabetes mellitus with diabetic polyneuropathy; E66.9 Obesity, unspecified; I25.10 Atherosclerotic heart disease of native coronary artery without angina pectoris; I35.0 Nonrheumatic aortic (valve) stenosis; I45.10 Unspecified right bundle-branch block; I70.0 Atherosclerosis of aorta; J30.9 Allergic rhinitis, unspecified; Z74.01 Bed confinement status; Z79.02 Long term (current) use of antithrombotics/antiplatelets; Z79.4 Long term (current) use of insulin; Z79.899 Other long term (current) drug therapy; Z79.82 Long term (current) use of aspirin; Z82.0 Family history of epilepsy and other diseases of the nervous system; Z82.5 Family history of asthma and other chronic lower respiratory diseases; Z82.49 Family history of ischemic heart disease and other diseases of the circulatory system; Z83.3 Family history of diabetes mellitus; Z82.3 Family history of stroke; Z87.891 Personal history of nicotine dependence; Z85.46 Personal history of malignant neoplasm of prostate; G47.00 Insomnia, unspecified; F41.1 Generalized anxiety disorder; G25.81 Restless legs syndrome; E78.2 Mixed hyperlipidemia; E11.51 Type 2 diabetes mellitus with diabetic peripheral angiopathy without gangrene; R53.81 Other malaise; Z20.822 Contact with and (suspected) exposure to COVID-19; E11.65 Type 2 diabetes mellitus with hyperglycemia; N18.30 Chronic kidney disease, stage 3 unspecified; R33.9 Retention of urine, unspecified; Z68.35 Body mass index [BMI] 35.0-35.9, adult; A41.89 Other specified sepsis
CPT/HCPCS: 36415; 70450; 71045; 71250; 72131; 73552; 74176; 80048; 80053; 80061; 81003; 82550; 82948; 83605; 83874; 83880; 84484; 85025; 85027; 85610; 85730; 87040; 87077; 87186; 87426; 92610; 93005; 93306; 93313; 93356; 93455; 97039; 99152; 99153; 99156; 99157; C1769; C1884; C1887; C1894; C9600; C9604; G0378; J0290; J0583; J0696; J1644; J1650; J1815; J1885; J1940; J2175; J2250; J2310; J3010; J3370; J3490; J7030; J7608; Q9967; U0003

== ENCOUNTER 2024-02-28 17:09 | Emergency (ER) | payer MEDICARE, OTHER ==
[~2024-02-28] VITALS: Ht 177.8 cm; Wt 76.2 kg
[~2024-02-28 17:09] MED LIST changes: -ACET-2743 PO; +AEC81 PO; -AMOX500C2 PO; -ASPI-1012 PO; -ATOR10 PO; +ATOR20TA65 PO; -CALC1TAB3 PO; +CEFX2I IV; -CILO100T PO; +ENZA40CA PO; +FISH1CAP20 PO; -FISH1CAP50 PO; +FURO40TA5 PO; -INSU100C6 SQ; +ISOS60TA77 PO; +LEVO25TA54 PO; -LISI40TA9 PO; -METF-444 PO; -METO100T7 PO; +METO50 PO; +OLME40TA18 PO; +PANT40TA PO; +TICA90TA PO; -TRAZ-185 PO; +UBID100C10 PO; +VITA1TAB39 PO; +[UNRECOGNIZED DRUG - CODE] IV
[2024-02-28 17:11] VITALS: BP 164/65; PULSE 62; RESP 12
[2024-02-28] MEDS ORDERED: ACET-2079 PO (18:22)
[2024-02-28] MEDS: TETANUS/DIPHTHERIA TOXOID [ADULT] 0.5 ML VIAL IM ONE (18:34)
== END 2024-02-28 18:48 | disposition home or self-care (01) ==
LOC: EDH 17:09
DX: S42.411A Displaced simple supracondylar fracture without intercondylar fracture of right humerus, initial encounter for closed fracture (principal); S09.90XA Unspecified injury of head, initial encounter; E11.9 Type 2 diabetes mellitus without complications; E78.00 Pure hypercholesterolemia, unspecified; I10 Essential (primary) hypertension; Z79.02 Long term (current) use of antithrombotics/antiplatelets; Z79.82 Long term (current) use of aspirin; Z79.899 Other long term (current) drug therapy; Z95.810 Presence of automatic (implantable) cardiac defibrillator; W01.0XXA Fall on same level from slipping, tripping and stumbling without subsequent striking against object, initial encounter; Y93.89 Activity, other specified; Y92.89 Other specified places as the place of occurrence of the external cause; Y99.8 Other external cause status
CPT/HCPCS: 70450; 72125; 73080; 90471; 90714

== ENCOUNTER 2025-03-15 11:27 | Emergency (ER) | payer MEDICARE, OTHER ==
[~2025-03-15] VITALS: Ht 177.8 cm; Wt 73.5 kg
[~2025-03-15 11:27] MED LIST changes: +ACET-2079 PO; +POLY17PO4 PO; -TAMS-1 PO; +TAMS-55 PO
[2025-03-15 11:39] VITALS: BP 128/54; PULSE 63; RESP 16; TEMP 97.6; O2SAT 98
[2025-03-15] MEDS: cefTRIAXone 1G VIAL IM ONE (12:06)
[2025-03-15] MEDS: teTANUS/diphthERIA TOXOID [ADULT] 0.5 ML VIAL IM ONE (12:06)
--- NOTE | 2025-03-15 12:14 | NUR ---
skin tear cleaned as md ordered wound bandaged with non adhearant and wrapped with kerlix
--- NOTE | 2025-03-15 12:27 | ERN ---
General Chief Complaint: Abrasion Stated Complaint: DOG SCRATCHED RIGHT FOREARM Time Seen by MD: 11:30 Source: patient History of Present Illness Initial Comments Patient is a an 84-year-old gentleman coming in to be evaluated for right forearm lesion. Per patient his dog jumped on him causing him has a skin tear in his right forearm. Allergies: Coded Allergies: No Known Drug Allergies (Unverified Allergy, 12/11/12) Home Meds Active Scripts Polyethylene Glycol 3350 (Miralax) 17 Gram Powd.pack, 17 GM PO DAILY for constipation, #30 PACKET 0 Refills Prov:JASON HUTCHISON MD 03/08/24 Acetaminophen with Codeine (Acetaminophen-Cod #3 Tablet) 300 Mg-30 Mg Tablet, 1 EACH PO TID for pain, #20 TAB Prov:RYLAN CARRILLO DO 02/28/24 Ceftriaxone Sodium (Rocephin) 2 Gm/Vial Inj, 2 GM IV AD, #70 ML 0 Refills Prov:ZACKARY JACKSON MD 01/25/21 Ampicillin Sodium (Ampicillin 1Gm+Ns 50Ml) 1 Gm/50 Ml Iv.soln, 2 GM IV AD, #140 ML 0 Refills Prov:ZACKARY JACKSON MD 01/25/21 Furosemide (Furosemide) 40 Mg Tablet, 40 MG PO BID, #60 TAB 2 Refills AT 7 AM AND 2PM Prov:ZACKARY JACKSON MD 01/25/21 Ticagrelor (Brilinta) 90 Mg Tablet, 90 MG PO BID for 30 Days, #60 TAB 1 Refill Prov:ZACKARY JACKSON MD 01/23/21 Pantoprazole Sodium (Protonix) 40 Mg Tablet.dr, 40 MG PO DAILY for 30 Days, #30 TAB 1 Refill Prov:ZACKARY JACKSON MD 01/23/21 Metoprolol Tartrate (Lopressor 50Mg Tab) 50 Mg Tab, 100 MG PO BID for 30 Days, #30 TAB 3 Refills Prov:ZACKARY JACKSON MD 01/23/21 Insulin Glargine,Hum.rec.anlog (Lantus) 100 Units/Ml Inj, 40 UNITS SQ DAILY08 for 30 Days, #30 ML 3 Refills Prov:ZACKARY JACKSON MD 01/23/21 Reported Medications Aspirin (ASPIRIN 81 MG ECTAB) 81 Mg Ectab, 81 MG PO DAILY, TAB.EC 01/16/21 B Complex with Vitamin C (Super B Complex-Vitamin C) 1 Each Tablet, 1 EACH PO DAILY, TAB 01/16/21 [place]-3 Fatty Acids/Fish Oil (Fish Oil 1000 mg/Cap) 1,000 Mg/Cap Capsule, 2000 MG PO BID, CAP 01/16/21 Enzalutamide (Xtandi) 40 Mg Capsule, 160 MG PO DAILY, CAP 01/16/21 Ubidecarenone (Coq-10) 100 Mg Capsule, 100 MG PO DAILY, CAP 01/16/21 Isosorbide Mononitrate (Isosorbide Mononitrate ER) 60 Mg Tab.er.24h, 1 TAB PO QDP 01/16/21 Atorvastatin Calcium (Atorvastatin Calcium) 20 Mg Tablet, 1 TAB PO QDP 01/16/21 Tamsulosin HCl (Flomax) 0.4 Mg Cap.er.24h, 0.4 MG PO DAILY 01/16/21 Levothyroxine Sodium (Levothyroxine Sodium) 25 Mcg Tablet, 1 TAB PO QDP 01/16/21 Olmesartan Medoxomil (Olmesartan Medoxomil) 40 Mg Tablet, 1 TAB PO QDP 01/16/21 Past Medical History Past Medical History: CHF, Diabetes-Type II, High Cholesterol, Heart Disease, Hypertension, Hypothyroid, Other Medical History Other: PROSTATE CA, PACEMAKER Past Surgical History: CABG, Pacer/AICD, Other Surgical History Other: ARMANI HIP, ROS Dictation CONSTITUTIONAL: No chills, no fever, no weakness, no diaphoresis, no malaise. HEAD/FACE: No signs of trauma. EENT: No eye pain, no blurred vision, no tearing, no double vision, no ear pain, no ear discharge, no nose pain, no nasal congestion, no throat pain, no throat swelling, no mouth pain. RESPIRATORY: No cough, no orthopnea, no SOB, no stridor, no wheezing. CARDIOVASCULAR: No chest pain, no edema, no palpitations, no syncope. GASTROINTESTINAL/ABDOMINAL: No abdominal pain, no constipation, no diarrhea, no nausea, no vomiting. GENITOURINARY: No abnormal discharge, no dysuria, no frequent urination, no hematuria. No complaints of pain in the genitals. MUSCULOSKELETAL: No back pain, no gout, no joint pain, no joint swelling, no muscle pain, no muscle stiffness, no neck pain. INTEGUMENTARY: No change in color, no change in hair/nails, no dryness, lesion, no lumps, no rash. NEUROLOGICAL/PSYCH: No anxiety, not depressed, no emotional problem, no headache, no numbness, no pre-existing deficit, no history of seizures, no tremors, no weakness. HEMATOLOGIC/LYMPHATIC: Not anemic, no history of blood clots, no apparent bleeding, no bruising, glands not swollen. All Systems Negative, Except as Noted. Physical Exam Physical Exam Dictation VITAL SIGNS: Reviewed. GENERAL APPEARANCE: Alert, oriented x3, no acute distress, obese. HEAD AND FACE: Non-traumatic. EYES: PERRL, pink conjunctivas, eyelid no trauma, anterior chamber clear. EARS: Pinnas intact and no signs of trauma or erythema. Ear canals clear and no discharge. TMs no erythema. NOSE: No discharge, no bleeding. OROPHARYNX: Mouth normal, teeth no caries, tongue pink. Pharynx clear, no erythema. Tonsils no exudates, no abscesses noted. Mucous membrane moist. NECK: Supple, non-tender, no thyromegaly, no masses, no JVD, no bruits. BREAST: Deferred. CHEST: No tenderness, no crepitus, no paradoxical movement, no retractions. LUNGS: Clear, well-ventilated, symmetric, no rales, no wheezing, no rhonchi, no stridor, good breath sounds bilaterally. HEART: Regular rate, regular rhythm, no murmur, no gallops. VASCULAR: No peripheral edema. ABDOMEN: Soft, positive bowel sounds, nondistended, no guarding, nontender, no rebound, no masses no hepatomegaly, no splenomegaly, no Alvarez's sign, no hernias. RECTAL: Deferred. GENITAL: Deferred. NEUROLOGICAL: Normal speech, gross motor function intact, gross sensory function intact. MUSCULOSKELETAL: Neck nontender, full range of motion, back nontender, full range of motion. EXTREMITIES: Nontender, full range of motion. Right forearm skin abrasion/skin tear SKIN: Color pink, dry, no turgor, no rash, no lacerations, no abrasions, no contusions. LYMPHATICS: Deferred. MDM MDM: Differential diagnosis: Skin tear, skin abrasion, Rationale: Tests considered and ordered secondary to shared decision making include: Previous outside records reviewed: Old ER visits. Risk of complication and/or morbidity or mortality of patient management: None Patient is a an 84-year-old gentleman coming in to be evaluated for right arm skin tear. Patient states that he has the ED Course Orders Procedure Category Date Status Time Forearm 2vws Rt RAD 03/15/25 Resulted 11:33 Tetanus,Diphtheria PHA 03/15/25 Complete Tox [Adult] (Diphther 12:00 Ceftriaxone 1g Vial PHA 03/15/25 Complete (Rocephine 1g Inj) 12:00 Dermabond (Dermabond) PHA 03/15/25 Complete 12:30 Current Medications Medications (Trade) Dose Ordered Sig/Violeta Route PRN Reason Start Time Stop Time Status Last Admin Dose Admin Ceftriaxone Sodium (ROCEphine 1G INJ) 1 gm ONCE ONCE IM 03/15/25 12:00 03/15/25 12:01 DC 03/15/25 12:06 Octyl Cyanoacrylate (Dermabond) 1 each ONCE ONCE TP 03/15/25 12:30 03/15/25 12:31 DC 03/15/25 12:31 Tetanus/ Diphtheria Toxoids Adsorbed (DiphthERIA-teTANUS TOXOID [ADULT]/ DECAVAC) 0.5 ml ONCE ONCE IM 03/15/25 12:00 03/15/25 12:01 DC 03/15/25 12:06 Vital Signs Date Time Temp Pulse Resp B/P (MAP) Pulse Ox O2 Delivery O2 Flow Rate FiO2 03/15/25 11:39 97.5 63 16 128/54 98 Room Air* 0 21 03/15/25 11:34 97.5 63 16 128/54 98 Room Air 0 Laceration/Wound Repair Laceration/Wound Repair : Wound Location: upper extremity Wound Length (cm): 4 Wound's Depth, Shape: superficial Wound Explored: clean Irrigated w/ Saline (ccs): 100 Wound Repaired With: Dermabond DX & DISP Disposition: Discharge Departure Impression: Primary Impression: Skin tear Condition: Stable Additional Instructions: FOLLOW-UP WITH PRIMARY CARE PROVIDER IN 1 TO 2 DAYS. TAKE MEDICATIONS DIRECTED HERE IN THE EMERGENCY ROOM. OKAY TO CONTINUE HOME MEDICATIONS UNLESS OTHERWISE DISCUSSED DURING YOUR VISIT IN THE EMERGENCY ROOM TODAY. RETURN TO YOUR NEAREST EMERGENCY ROOM IF SYMPTOMS WORSEN OR IF THERE IS NO IMPROVEMENT. CALL 911 IF YOU NEED IMMEDIATE ASSISTANCE. TAKE TYLENOL [id number] NEEDED AND IF NO CONTRAINDICATIONS ARE PRESENT. INCREASE ORAL HYDRATION. A WOUND CULTURE OR URINE CULTURE WAS ORDERED HERE IN THE EMERGENCY ROOM DEPARTMENT PLEASE FOLLOW-UP WITH PRIMARY CARE PROVIDER AND ADVISE THEM TO GET REPEAT PORTS FROM OUR FACILITY. IF YOU HAD ANY JAZMINE WRAP/SPLINTS THAT WERE APPLIED HERE, PLEASE DO NOT REMOVE THEM UNTIL YOU SEE YOUR PRIMARY CARE OR SPECIALTY. Referrals: Referrals: ZACKARY JACKSON MD (PCP) Time of Disposition: 12:31 GABI SANTIAGO MD Mar 15, 2025 12:27
--- NOTE | 2025-03-15 12:29 | HMCIMG ---
FOREARM 2VWS RT HISTORY: Wound COMPARISON: None TECHNIQUE: 2 images of the right forearm were obtained. FINDINGS: There is no acute displaced fracture or dislocation. There is soft tissue swelling. Osteopenia is suggested. Radiocarpal joint space narrowing is seen. Vascular calcifications are seen. Degenerative changes are seen. IMPRESSION: 1. Findings as described above.
[2025-03-15] MEDS: OCTYL 2-CYANOACRYLATE 1 EACH TP ONE (12:31)
== END 2025-03-15 12:38 | disposition home or self-care (01) ==
LOC: EDH 11:27
DX: S51.812A Laceration without foreign body of left forearm, initial encounter (principal); I11.0 Hypertensive heart disease with heart failure; I50.9 Heart failure, unspecified; E78.00 Pure hypercholesterolemia, unspecified; E03.9 Hypothyroidism, unspecified; E11.9 Type 2 diabetes mellitus without complications; Z79.02 Long term (current) use of antithrombotics/antiplatelets; Z79.82 Long term (current) use of aspirin; Z79.899 Other long term (current) drug therapy; Z95.1 Presence of aortocoronary bypass graft; Z95.810 Presence of automatic (implantable) cardiac defibrillator; X58.XXXA Exposure to other specified factors, initial encounter; Y93.89 Activity, other specified; Y92.89 Other specified places as the place of occurrence of the external cause; Y99.8 Other external cause status
CPT/HCPCS: 99284; 90714; 73090; 96372; 90471; 12002; J0696